=== PATIENT | female | born 1985 ===

== ENCOUNTER 2025-07-05 12:06 | Emergency (ER) | payer BC, MEDICAID, SELFPAY ==
[2025-07-05 12:06] VITALS: BMI 26.6
[2025-07-05 12:14] VITALS: BP 137/90; PULSE 96; RESP 18; TEMP 36.8; O2SAT 100
--- NOTE | 2025-07-05 12:28 | PD.EDADULT ---
ED General RME/HPI General Chief complaint: Abdominal Pain Stated complaint: MEDIAL ABD PAIN X4 DAYS Time Seen by Provider: 07/05/25 12:21 Arrival date/time: 07/05/25 12:06 CC: Epigastric right upper quadrant abdominal pain HPI onset 3 months ago progressive waxing and waning but increased in severity over the last 24 hours worse when lays flat or after meals. She is on omeprazole without relief. Patient denies fever chills chest pain shortness of breath or difficulty breathing. Related Data Previous Rx's ?Medication ?Instructions ?Recorded ketorolac 10 mg tablet 10 mg PO Q8H #14 tabs 07/05/25 ondansetron 4 mg disintegrating 4 mg PO Q8H #14 tabs 07/05/25 tablet tamsulosin 0.4 mg capsule 0.4 mg PO Q24H #30 caps 07/05/25 Allergies Allergy/AdvReac Type Severity Reaction Status Date / Time No Known Allergies Allergy Verified 07/05/25 12:09 Review of Systems Review of Systems Narrative Review of Systems: GEN: No fever, no chills, no weight loss EYES: No discharge, no visual changes, no pain HEENT: No ear pain, no congestion, no sore throat PULM: No shortness of breath, no cough, no congestion CV: No chest pain, no dyspnea on exertion, no palpitations GI: No nausea, no vomiting, no diarrhea, + pain, no constipation : No frequency, no urgency, no dysuria MUSC/SKEL: No joint pain, no back pain SKIN: No rash PSYCH: No hallucinations, no depression HEME/LYMPH: No easy bleeding or bruising tendencies NEURO: No weakness, no headache ED Exam Narrative Physical exam: [General: Not in any acute distress Head normocephalic HEENT: Within acceptable limits Neck is supple nontender Chest equal chest rise nontender to palpation Respiratory: Clear to auscultation no wheezes crackles or rubs CV: Rate rhythm is regular no murmurs rubs or clicks Abdomen: Mildly distended, exquisite tenderness to the epigastrium right upper quadrant no reflexive guarding no rebound tenderness. No right upper quadrant tenderness no lower abdominal present tenderness. Back: No CVA tenderness no spinous process tenderness from cervical spine thoracic and lumbar spine Skin: Intact no petechiae rash induration ulceration or crepitus Extremities: Moving all extremity against resistance cap refill less than 2 seconds neurosensory intact Neuro: Awake alert oriented x3 Glascow coma 15 no focal deficits] Course Course Course Narrative: Patient got relief with the Toradol, given that the patient is abdominal CT shows that she has a 3 mm stone I am suspicious that is the cause. Patient be referred over to urology but given ketorolac ondansetron and Flomax for management. Patient advised if there is worsening of symptoms return the emergency room for reevaluation. Quality Measures none Orders Category Date Time Status CT abdomen wo con Stat Exams 07/05/25 14:54 Completed CBC Stat Lab 07/05/25 12:48 Completed CMP [Comprehensive Metabolic Panel] Stat Lab 07/05/25 12:48 Completed Lipase Stat Lab 07/05/25 12:48 Completed Urinalysis Stat Lab 07/05/25 13:00 Completed Ketorolac Inj [Toradol Inj] Med 07/05/25 14:55 Discontinued 30 mg IM X1 ONE Lidocaine 2% Viscous [Xylocaine 2% Viscous] Med 07/05/25 13:02 Discontinued 15 ml PO X1 ONE mg Hyd/Al Hyd/Johanny Susp [Maalox Susp] Med 07/05/25 13:02 Discontinued 30 ml PO X1 ONE Vital Signs Vital signs: Vital Signs Temperature 98.3 F 07/05/25 12:14 Pulse Rate 96 07/05/25 12:14 Respiratory Rate 18 07/05/25 12:14 Blood Pressure 137/90 H 07/05/25 12:14 Pulse Oximetry (%) 100 07/05/25 12:14 Oxygen Delivery Method Room Air 07/05/25 12:14 Discharge Plan Plan Patient Disposition: HOME (Self Care) Patient condition on transfer: Stable Prescriptions/Referrals Prescriptions/Med Rec: New ketorolac 10 mg tablet 10 mg PO Q8H Qty: 14 0RF Rx Instructions: maximum total duration of 5 days from all oral, intranasal, or parenteral formulations tamsulosin 0.4 mg capsule 0.4 mg PO Q24H Qty: 30 0RF ondansetron 4 mg tablet,disintegrating 4 mg PO Q8H Qty: 14 0RF Referrals: Herminia South MD [Physician, Urology] - In 1 week David Maciel PA-C [Primary Care Provider] - In 1 week Problem List Clinical Impression: Left flank pain, Urolithiasis Patient/Caregiver Discharge Instructions Other Activity Instructions:: Take the medications as prescribed for nausea or pain. Follow-up with the urologist listed above if there is a worsening of symptoms return the emergency room immediately for further evaluation. Education Materials: ED Kidney Stone Undescended No ... Print Language: Lao Stand Alone Forms: Sugey Award Info., Work/School Release PA/JANES Supervising Physician [employer] Supervising Physician: Richard Wood ENP [facility] Clinical Information Provided by: patient and EMS Medical Records reviewed [facility] and EMS Meds/Rx considered, not ordered None Labs/Rad/Tests considered, not ordered None Chronic Illness/Social Conditions which may negatively complicate care or outcome(s)-explain: None or not applicable Labs Labs: interpreted by me Lab(s) Interpretation(s): CBC shows no acute leukocytosis the patient has mild anemia with hemoglobin of 10.8 and 33.0. No thrombocytopenia CMP shows no significant lecture light imbalances renal impairment transaminitis or T. bili elevation Lipase is 26 Urine is light brown 3+ blood leukocyte esterase negative RBCs of 481 no bacteria. Imaging Imaging interpretation: interpreted by me Imaging Interpretation(s): CT of the pelvis shows mass versus appendage to the uterus recommended transvaginal ultrasound CT of the abdomen shows a suspicious for 3 mm stone in the left side. Note, this is consistent with the patient's clinical findings and complaint. Medication Administration(s) Medication Administration History Discontinued Medications Al Hydrox/Mg Hydrox/Simethicone (Mg Hyd/Al Hyd/Johanny (Maalox Reg) Susp 30 Ml Udc) 30 ml PO X1 ONE Stop: 07/05/25 13:03 Last Admin: 07/05/25 13:31 Dose: 30 ml Documented By: SHARON Ketorolac Tromethamine (Ketorolac Inj 30 Mg/Ml Vial) 30 mg IM X1 ONE Stop: 07/05/25 14:56 Last Admin: 07/05/25 15:01 Dose: 30 mg Documented By: SHARON Lidocaine HCl (Lidocaine Viscous 2% 15 Ml Udc) 15 ml PO X1 ONE Stop: 07/05/25 13:03 Last Admin: 07/05/25 13:31 Dose: 15 ml Documented By: SHARON
[2025-07-05 13:04] LABS: Collection Type, Urine Clean Catch; WBC,Urine 0 /hpf (0-5)
[2025-07-05 13:09] LABS: Bilirubin,Urine Negative (Negative); Blood,Urine 3+ (Negative); Clarity,Urine Clear (Clear/Hazy); Color,Urine Lt-Brown (Lt Yel-Yel); Glucose, Urine Negative (Negative); Ketones,Urine 1+ (Negative); Leukocyte Esterase,Urine Negative (Negative); Nitrite,Urine Negative (Negative); PH,Urine 6.0 (5.0-7.0); Protein,Urine Negative (Neg - Trace); RBC,Urine 481 /hpf (0-3); Squamous Epithelial Cell,Urine < 1 /hpf (0-5); Urobilinogen,Urine Negative mg/dL (0.0-1.0)
[2025-07-05 13:17] LABS: Basophils # (Auto) 0.1 Thou/mm3 (0.0-0.2); Basophils % (Auto) 1 % (0-2.5); Eosinophils # (Auto) 0.1 Thou/mm3 (0.0-0.5); Eosinophils % (Auto) 2 % (0-10); Hematocrit 33.0 % (36.0-46.0); Hemoglobin 10.8 g/dL (12.0-16.0); Immature Granulocytes Auto 0.01 Thou/mm3 (0.00-0.00); Lymphocytes # (Auto) 2.6 Thou/mm3 (1.0-4.8); Lymphocytes % (Auto) 37 % (10-50); Mean Corpuscular HGB Conc 32.7 g/dl (31.0-37.0); Mean Corpuscular Hemoglobin 26.3 pg (25.0-35.0); Mean Corpuscular Volume 81 fL (80-100); Monocytes # (Auto) 0.7 Thou/mm3 (0.0-0.8); Monocytes % (Auto) 10 % (0-12); Neutrophils # (Auto) 3.6 Thou/mm3 (1.8-7.7); Neutrophils % (Auto) 51 % (37-80); Nucleated Red Blood Cell # 0.00 Thou/mm3 (0.00-0.00); Nucleated Red Blood Cell % 0 /100 WBC (0); Platelet Count 370 Thou/mm3 (140-440); RDW Standard Deviation 42.9 fL (36.4-46.3); Red Blood Count 4.10 Miln/mm3 (4.00-5.20); White Blood Count 7.1 Thou/mm3 (3.6-11.0)
[2025-07-05 13:17] LABS: Specific Gravity,Urine 1.020 (1.001-1.035)
[2025-07-05] MEDS: MG HYD/AL HYD/SIME (Maalox Reg) SUSP 30 ML UDC PO (13:31)
[2025-07-05] MEDS: LIDOCAINE VISCOUS 2% 15 ML UDC PO (13:31)
[2025-07-05 13:48] LABS: Alanine Aminotransferase 13 U/L (10-49); Albumin, Serum 4.7 gm/dL (3.5-5.0); Albumin/Globulin Ratio 1.8 (1.2-2.2); Alkaline Phosphatase 99 U/L (46-116); Anion Gap 10 (7-16); Aspartate Amino Transferase 23 U/L (0-34); BUN/Creatinine Ratio 9 Ratio (12-20); Bilirubin,Total 0.5 mg/dL (0.3-1.2); Blood Urea Nitrogen 6 mg/dL (9-23); Calcium 9.3 mg/dL (8.3-10.6); Calcium (Corrected) 9.3 mg/dL (8.5-10.1); Carbon Dioxide 25.3 mMol/L (20.0-31.0); Chloride 105 mMol/L (98-107); Creatinine (Component) 0.7 mg/dL (0.6-1.3); Estimated Creatinine Clearance 105.6 mL/min (>60); Globulin 2.6 gm/dL (2.3-3.5); Glucose 92 mg/dL (74-106); Lipase 26 U/L (12-53); Osmolality,Calculated 277 (275-295); Potassium 4.0 mMol/L (3.4-5.1); Sodium 140 mMol/L (136-145); Total Protein 7.3 gm/dL (5.7-8.2); eGFR > 60 See Note
--- NOTE | 2025-07-05 14:54 | XR_ITS ---
Examination: CT abdomen without intravenous contrast. Coronal 2-D reconstructions. Sagittal 2-D reconstructions. Date and time of exam: July 05, 2025, 1523 hours, comparison January 08, 2011 INDICATIONS: Left upper abdominal pain beginning 4 days ago CTDI: vol (mGy): 6.74 DLP: (mGycm): 235 Technique: Axial images of the abdomen have been obtained, 3 mm slice thickness, without intravenous contrast 2-D sagittal coronal reconstructions Low dose protocols were performed. One or more of the following dose reduction techniques were used; automated exposure control, adjustment of the mA and/or KV according to patient size, use of iterative reconstruction technique. Findings: No focal liver or splenic lesions Gallbladder is contracted, no extrahepatic biliary tract dilatation No pancreatic mass Contrast in the kidneys from the patient's CT pelvis study today, although suspicious for 3 mm left renal calculus No pancreatic mass No hydronephrosis Aorta normal size 7 mm fat-containing umbilical hernia Normal appendix No bowel obstruction IMPRESSION: Suspicious for 3 mm left renal calculus, no hydronephrosis or ureteral calculi Normal appendix Small fat-containing umbilical hernia
[2025-07-05] MEDS: KETOROLAC INJ 30 MG/ML VIAL IM (15:01)
[2025-07-05 17:55] VITALS: BP 123/76; PULSE 70; RESP 16; TEMP 36.6; O2SAT 100
== END 2025-07-05 17:58 | disposition home or self-care (01) ==
PROVIDERS: Registered Nurse General Practice; Emergency Provider Family Medicine; PCP Physician Assistant
DX: N20.0 Calculus of kidney (principal)
CPT/HCPCS: 36415; 74150; 80053; 81001; 83690; 85025; 96372; 99283; J1885; J3490; A9270

== ENCOUNTER → 2025-07-05 | Outpatient (CLI) | payer BC, SELFPAY ==
[2025-07-05 11:25] LABS: HCG Qualitative,Urine Negative
--- NOTE | 2025-07-05 11:30 | XR_ITS ---
Examination: CT pelvis, without contrast. CT pelvis with intravenous contrast 2-D sagittal reconstructions. 2-D coronal reconstructions. 3-D reconstructions. Date and time of exam: July 05, 2025, 11:57 a.m. INDICATIONS: Lower pelvic pain 1 month, diagnosis other noninflammatory disorders of the ovary, fibroid mass, CTDI: vol (mGy): 18.7 DLP: (mGycm): 623 Technique: Multiple 1.25 mm axial sections of the pelvis pre and post intravenous administration 60 cc Isovue-370 have been obtained. 2-D sagittal and coronal reconstructions have been obtained. 3-D reconstructions have been obtained. Low dose protocols were performed. One or more of the following dose reduction techniques were used; automated exposure control, adjustment of the mA and/or KV according to patient size, use of iterative reconstruction technique. Findings: Normal appendix No bowel obstruction Anteverted uterus, 25 mm dorsal uterine body mass 39 mm right ovarian cyst Solid mass posterior right pelvis axial image 68, 6.4 cm, which may be part of the uterus or part of the right ovary IMPRESSION: 39 mm right pelvic cyst Solid mass 25 mm dorsal uterine body 6.4 cm solid mass posterior right pelvis which may be part of the uterus or part of the right ovary, recommend transabdominal transvaginal pelvic sonography follow-up
== END | disposition home or self-care (01) ==
PROVIDERS: PCP Physician Assistant; Referring Provider Physician Assistant; Visit Provider Physician Assistant
DX: N94.89 Other specified conditions associated with female genital organs and menstrual cycle (principal); R19.09 Other intra-abdominal and pelvic swelling, mass and lump; Z32.00 Encounter for pregnancy test, result unknown
CPT/HCPCS: 72194; 81025; A4649; Q9967

== ENCOUNTER 2025-07-15 08:49 | Outpatient (AMB) | payer BC, SELFPAY ==
[2025-07-15 09:03] VITALS: BP 121/85; PULSE 85; RESP 16; TEMP 36.8; O2SAT 97; BMI 25.2
--- NOTE | 2025-07-15 09:03 | AMB.GYNCLNOT ---
Vital Signs 07/15/25 09:03 Height 1.65 m Height Method Stated Weight 68.606 kg Weight Measurement Method Standing Scale BMI 25.2 BP 121/85 H Blood Pressure Source Automatic Cuff Blood Pressure Location Left Upper Arm Position Sitting Respiration 16 Pulse 85 Pulse Source Monitor Temp 98.2 F Temp Source Oral Pulse Oximetry (%) 97 Oxygen Delivery Method Room Air Allergies/Home Meds Allergies & Medications Allergies No Known Allergies Allergy (Verified 07/15/25 09:04) Medication Reconciliation ketorolac 10 mg tablet 10 mg PO Q8H #14 tabs 07/05/25 [Rx Confirmed 07/15/25] ondansetron 4 mg disintegrating tablet 4 mg PO Q8H #14 tabs 07/05/25 [Rx Confirmed 07/15/25] tamsulosin 0.4 mg capsule 0.4 mg PO Q24H #30 caps 07/05/25 [Rx Confirmed 07/15/25] Intake Visit Data Collection New Patient or Established: Established Patient (seen at [facility] within 3 years) Reason for Visit:: REFERRAL UTERINE FIBROID/ heavy irregular periods and an enlarged R ovary at 7.7 cm Seen by Clinical Staff ONLY (RN/MA): No Senior Director Creative Services Required: No Do You Feel Safe at Home: Yes Authorities Contacted: N/A Primary Care Provider: CN PCP or OBGYN visit in last 3 months: Yes Hx Now: No Are you currently on any form of Control: No Last menstrual period: 07/05/25 Pain Present Currently: Yes Pain Location: Abdomen (LOWER ) Pain Scale Used: Beltre-Ahuja/Numerical Pain scale:: 2 Smoking Status Smoking Status: Never smoker Immunizations Flu Vaccine in the Last 12 Months: Yes Flu Vaccine Exclusion Criteria: Already Received [employer]ing history [employer] History Menstrual regularity: irregular Flow: heavy Monthly: Yes How many days does period last: 20 Age at menarche: 9 Menopausal: No Currently sexually active: Yes Additional comments: h/o chlamydia in the past and 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 1. Little interest or pleasure in doing things: not at all 2. Feeling down, depressed, or hopeless: not at all Total score: 0 PHQ-9 3. Trouble falling or staying asleep, or sleeping too much: Not at all 4. Feeling tired or having little energy: Not at all 5. Poor appetite or overeating: Not at all 6. Feeling bad about yourself - or that you are a failure or have let yourself or your family down: Not at all 7. Trouble concentrating on things, such as reading the newspaper or watching television: Not at all 8. Moving or speaking so slowly that other people could have noticed? - Or the opposite - being so fidgety or restless that you have been moving around a lot more than usual: not at all 9. Thoughts that you would be better off or of hurting yourself in some way: Not at all Total score: 0 Source: Developed by Drs. Reza Aden, Mitzi Bruno, Hosea Norton and colleagues, with an educational shaina from [employer] Depression screen completed yes Social History Living Situation History Marital Status: Lives With: Family Housing: House Tobacco History Smoking Status: Never smoker Second Hand Smoke Exposure: No Alcohol History Alcohol Intake: Never Domestic Abuse History Do You Feel Safe at Home: Yes History of Present Illness HPI Narrative Assessment 39 years old G 2 P1AB 1 referred for heavy irregular periods and also uterine 3.6 cm fundal fibroid and also 7.7 cm enlarged R ovary from [facility] Patient had a CT scan one last Tuesday / Per patient LPS done in April 2025 and she had one c section she has kidney stones and pain due to it . needs tumor markers / diagnoses mainly metrorheggia with enlarged R Ov cyst and small uterine fundal fibroid and previous c section x 1 Plan labs Tumor markers education/counselling on evaluation and treatment including medications and surgical options Follow up Review of Systems Review of Systems Systems Reviewed: All systems reviewed, normal except as documented Exam Narrative Physical exam: Alert and oriented x 3 no shortness of breath Pain no chest pain no palpitations CVS regular rate and rhythm No CVAT Abdomen nontender, normal bowel sounds No guarding no rigidity No hernias Pelvic exam showed R sided fullness and uterus about 10 to 12 weeks size Normal cervix No TTP Office Procedures [facility] LOC & Office Proc's Nursing/Assessment Patient Status: Established Patient OB Clinic Nursing Assessment: Medication Reconciliation, Update PMH in EMR and Vital Signs OB Clinic Coordination of Care: Complex Care and Chronic Disease 1-5, Consent,records obtained, informed consent, Education Simp Pt/Fam, 1 Ins Authorization, Lab and Imaging orders, Results/Orders obtained and Staff clarify orders Established Patient Charge Established Patient Point Assignment: 120 Established Patient Point Charge: EP Level 4 (120-155) Assessment & Plan Diagnosis / Problem List (1) Heavy periods: Status: Acute Qualifiers: Menorrhagia type: with irregular cycle Qualified Code(s): N92.1 - Excessive and frequent menstruation with irregular cycle (2) Uterine fibroid: Status: Acute Qualifiers: Uterine leiomyoma location: unspecified location Qualified Code(s): D25.9 - Leiomyoma of uterus, unspecified (3) Right ovarian cyst: Status: Acute Additional Assessment 39 years old G 2 P1AB 1 referred for heavy irregular periods and also uterine 3.6 cm fundal fibroid and also 7.7 cm enlarged R ovary from [facility]/ Plan Tumor markers CA 125/ AFP/HCG/ LDH follow up and then decide on hysterectomy here or with medical technologist generalist oncology as small risk of ov neoplasia is there even if tumor markers are normal as only pathology after removal of diseased tissue will determine presence or absence of malignanacy or neoplasia / definitive treatment will be hysterectomy and removal of Rt tube and ovary and left Tube / possible also Left ovary / will need HRT possibly if both ovaries are removed . Again route of hysterectomy to be discussed on follow up/ robotic vs laparoscopic vs open / and here or with [employer] Oncology / after tumor markers are available will discuss with the patient on follow up
== END 2025-07-15 09:41 | disposition home or self-care (01) ==
LOC: HODSOBC 08:49
PROVIDERS: Supervising Provider Obstetrics & Gynecology; Visit Provider Obstetrics & Gynecology
DX: D25.9 Leiomyoma of uterus, unspecified (principal); N83.201 Unspecified ovarian cyst, right side; N92.0 Excessive and frequent menstruation with regular cycle
CPT/HCPCS: 99214; G0463

== ENCOUNTER → 2025-07-19 | Outpatient (CLI) | payer BC, SELFPAY ==
[2025-07-19 10:15] LABS: Beta HCG,Quantitative < 1 mIU/mL (<5.0); LDH (Lactate Dehydrogenase) 174 U/L (120-246)
[2025-07-19 10:36] LABS: CA 125 16.0 U/mL (<30.2)
== END | disposition home or self-care (01) ==
LOC: COPL 08:40
PROVIDERS: PCP Physician Assistant; Referring Provider Obstetrics & Gynecology; Visit Provider Obstetrics & Gynecology
DX: N83.201 Unspecified ovarian cyst, right side (principal); D25.9 Leiomyoma of uterus, unspecified; N92.1 Excessive and frequent menstruation with irregular cycle
CPT/HCPCS: 36415; 83615; 84702; 86304